=== PATIENT | male | born 1970 | race Caucasian/White ===

== ENCOUNTER 2021-01-29 15:34 | Emergency (ER) | payer OTHER, SELFPAY ==
--- NOTE | ~2021-01-29 | CT_ITS ---
EXAMINATION: CTA chest DATE: 01/29/2021 20:20 CDT INDICATION: Severe upper back and chest pain TECHNIQUE: Computed tomographic angiography (CTA) of the chest was performed with 100 mL Omnipaque-35 0 intravenous contrast. The dose-length product was 349.50 mGy-cm. Maximum intensity projection 3D-re constructions of the aorta and other arteries were constructed by the technologist on a separate work station. Automated exposure control and iterative reconstruction technique were employed. COMPARISON: None. FINDINGS: Heart size is normal. No thoracic lymphadenopathy. No significant pleural or pericardial ef fusion. No endobronchial lesions. There is left lower lobe atelectasis. No focal consolidation. 4 mil limeter left upper lobe nodule, likely benign. 3 mm right upper lobe nodule. There is an additional 2 mm right middle lobe nodule. Thyroid gland is unremarkable. No evidence for aortic aneurysm or disse ction. There are wedge-shaped vertebra at the thoracolumbar junction, likely chronic. No acute osseou s abnormality. IMPRESSION: 1. No acute cardiopulmonary disease. No significant vascular abnormality. 2: Small bilateral pulmonary nodules measuring 4 mm or less, likely benign. Follow-up CT chest in 12 months recommended. Reviewed, dictated and finalized at location A. IMPRESSION: 1. No acute cardiopulmonary disease. No significant vascular abnormality. 2: Small bilateral pulmonary nodules measuring 4 mm or less, likely benign. Fol low-up CT chest in 12 months recommended.
--- NOTE | ~2021-01-29 | XR_ITS ---
EXAMINATION: XR chest 2V 01/29/2021 15:59 INDICATION: Chest pain and cough PROCEDURE: 2 view chest COMPARISON: 01/24/2010 FINDINGS: The lungs are clear. The cardiomediastinal silhouette is within normal limits. There are no pleural effusions. There is no pneumothorax suspected. IMPRESSION: 1: NO ACUTE CARDIOPULMONARY DISEASE. Reviewed, dictated and finalized at location A.
[2021-01-29 15:45] VITALS: BP 135/100; PULSE 97; RESP 17; TEMP 36.4; O2SAT 98
--- NOTE | 2021-01-29 15:48 | ECG_ITS ---
Measurements Intervals [place] Rate: 91 P: 65 [place]: 146 QRS: 62 QRSD: 102 T: 74 QT: 342 QTc: 421 Interpretive Statements SINUS RHYTHM POSSIBLE LEFT ATRIAL ENLARGEMENT INCOMPLETE RIGHT BUNDLE BRANCH BLOCK BORDERLINE ECG Electronically Signed On 01-30-2021 6:41:46 CDT by Jorge Nelson D.O.
[2021-01-29 16:00] LABS: Basophils Percent Auto 0.3 % (0.2-1.2); Eosinophils Absolute Auto 0.7 K/mm3 (0-0.3); Eosinophils Percent Auto 5.5 % (0-4.4); Hematocrit 41.8 % (42.0-52.0); Hemoglobin 14.1 g/dL (14.0-18.0); Immature Granulocyte Absolute 0.03 K/mm3 (0.00-0.031); Immature Granulocyte Percent A 0.2 % (0-0.5); Lymphocytes Absolute Auto 2.98 K/mm3 (0.9-3.2); Lymphocytes Percent Auto 23.2 % (18.3-44.2); Mean Corpuscular HGB Conc 33.7 g/dl (32-36); Mean Corpuscular Hemoglobin 29.4 pg (26-34); Mean Corpuscular Volume 87.3 fl (80-100); Mean Platelet Volume 9.4 fl (7.4-10.4); Monocytes Absolute Auto 0.9 K/mm3 (0.1-0.6); Monocytes Percent Auto 7.2 % (2.6-8.5); Neutrophils Absolute Auto 8.1 K/mm3 (1.3-6.7); Neutrophils Percent Auto 63.6 % (45.5-73.1); Platelet Count Result 276 k/mm3 (150-375); Red Blood Count 4.79 M/mm3 (4.6-6.20); White Blood Count 12.8 K/mm3 (4.5-10.0)
[2021-01-29 16:09] LABS: Anion Gap 10 mmol/L (8-16); Blood Urea Nitrogen 14 mg/dL (9-20); Calcium 9.7 mg/dL (8.4-10.2); Carbon Dioxide 26 mmol/L (22-30); Chloride 104 mmol/L (98-107); Estimated CRCL calculation 78 ml/min; Estimated Glomerular Filt Rate > 60; Glucose 142 mg/dL (75-110); Potassium 4.4 mmol/L (3.4-5.0); Sodium 140 mmol/L (137-145)
[2021-01-29 16:21] LABS: Troponin I < 0.012 ng/mL (0.000-0.034)
[2021-01-29 16:22] LABS: INR 0.9; Prothrombin Time 12.3 Seconds (11.1-14.7)
[2021-01-29 18:40] VITALS: BP 162/99; PULSE 82; RESP 20; O2SAT 98
[2021-01-29 19:18] LABS: Troponin I < 0.012 ng/mL (0.000-0.034)
--- NOTE | 2021-01-29 19:24 | ED.BACK ---
HPI - Back Pain/Injury General Chief Complaint: Chest Pain Stated Complaint: chest pain Time Seen by Provider: 01/29/21 18:52 Source: patient and RN notes reviewed Mode of arrival: ambulatory Limitations: no limitations History of Present Illness HPI Narrative: This is a 50 year old male who presents for evaluation of pain between his shoulder blade. He developed pain 3 days ago . He states his pain has been constant and it feels similar to previous episode of pleurisy. He describes his pain has sharp. It is worse with movement and breathing. He denies cough, fever, nausea, vomiting or shortness of breath. HE states he may have noticed mild pain his chest today . He denies history of PE. He has not taken any medication or tried any treatment for his pain. Related Data Allergies Allergy/AdvReac Type Severity Reaction Status Date / Time No Known Allergies Allergy Verified 01/29/21 18:38 Review of Systems Review of Systems: All systems reviewed & are unremarkable except as noted in HPI and below PMFSH Past Medical History Medical History (Updated 01/30/21 @ 00:00 by Background Daemon) Pleurisy Social History Social History Smoking status: Current every day smoker Gender identity (if verbalized by the patient): Male Exam Const: General: no acute distress and alert Orientation/consciousness: patient oriented x3 Eyes: EOM: EOMs intact bilaterally Chest: Chest palpation & inspection: normal inspection of the chest Resp: Effort & Inspection: normal respiratory effort and no retractions Auscultation: clear to auscultation bilaterally Cardio: Rate: regular rate Rhythm: regular rhythm Heart sounds: no murmurs GI: GI Palp: Yes Soft to palpation, Yes Tenderness to palpation present (GI) (epigastric) and No Guarding due to palpation present (GI) Auscultation: normal bowel sounds Skin: General skin exam: normal color Rashes: no rashes Neuro: General: patient oriented x3, moves all extremities and CN's II-XI intact bilaterally Psych: Mental Status: mental status grossly normal Affect: normal affect Course Reevaluation(s) Reevaluation #1: PAtient states he feels better after toradol and valium. He states he now remembers that he was doing heavy lifting prior to his pain. CT did not shows any aortic etiology . His troponin and d dimer were negative. His pain does sound musculoskeletal. He denies have any neurodeficits. Date: 01/29/21 Time: 20:42 Vital Signs Vital signs: Vital Signs Temperature 97.6 F 01/29/21 15:45 Pulse Rate 97 01/29/21 15:45 Respiratory Rate 17 01/29/21 15:45 Blood Pressure 135/100 H 01/29/21 15:45 Pulse Oximetry 98 01/29/21 15:45 Temperature 97.6 F 01/29/21 15:45 Pulse Rate 100 01/29/21 21:07 Respiratory Rate 19 01/29/21 21:07 Blood Pressure 142/81 H 01/29/21 21:07 Pulse Oximetry 99 01/29/21 21:07 MDM - Back Pain/Injury Lab Data Attestation: I reviewed the patient's lab results. Result diagrams: 01/29/21 15:53 01/29/21 15:53 Labs: Lab Results 01/29/21 01/29/21 01/29/21 Range/Units 15:53 15:53 15:53 WBC 12.8 H (4.5-10.0) K/mm3 RBC 4.79 (4.6-6.20) M/mm3 Hgb 14.1 (14.0-18.0) g/dL Hct 41.8 L (42.0-52.0) % MCV 87.3 (80-100) fl MCH 29.4 (26-34) pg MCHC 33.7 (32-36) g/dl RDW 13.0 (11.5-14.5) % Plt Count 276 (150-375) k/mm3 MPV 9.4 (7.4-10.4) fl Immature Gran % (Auto) 0.2 (0-0.5) % Neut % (Auto) 63.6 (45.5-73.1) % Lymph % (Auto) 23.2 (18.3-44.2) % [place] % (Auto) 7.2 (2.6-8.5) % Eos % (Auto) 5.5 H (0-4.4) % Baso % (Auto) 0.3 (0.2-1.2) % Lymph # (Auto) 2.98 (0.9-3.2) K/mm3 [place] # (Auto) 0.9 H (0.1-0.6) K/mm3 Eos # (Auto) 0.7 H (0-0.3) K/mm3 Baso # (Auto) 0.0 (0.0-0.1) K/mm3 Abs Immat Gran (auto) 0.03 (0.00-0.031) K/mm3 Absolute Neuts (auto) 8.1 H (1.3-6.7) K/mm3 Absolute Nucleated RBC
[2021-01-29 19:43] LABS: D Dimer 0.41 ug/mL (<0.48)
[2021-01-29] MEDS: KETOROLAC 15 MG/ML VIAL (*BKC) IV PUSH (19:43)
[2021-01-29] MEDS: diazePAM (*CRX) 5 MG TABLET PO (19:44)
[2021-01-29 19:47] LABS: Alanine Aminotransferase 24 U/L (4-50); Albumin Level 4.1 g/dL (3.5-5.1); Alkaline Phosphatase 156 U/L (38-126); Aspartate Amino Transferase 21 U/L (17-59); Bilirubin,Total 0.4 mg/dL (0.2-1.3); CRP 1.7 mg/dL (<1.0); Lipase 81 U/L (23-300)
[2021-01-29 19:48] VITALS: BP 170/123; PULSE 94; RESP 26; O2SAT 98
--- NOTE | 2021-01-29 20:07 | PC.NURSE ---
pt in CTA at this time
[2021-01-29 20:17] VITALS: BP 151/107; PULSE 94; RESP 20; O2SAT 100
[2021-01-29 21:07] VITALS: BP 142/81; PULSE 100; RESP 19; O2SAT 99
== END 2021-01-29 21:13 | disposition home or self-care (01) ==
PROVIDERS: Emergency Medicine; Emergency Provider General Practice
DX: M54.6 Pain in thoracic spine (principal); R91.8 Other nonspecific abnormal finding of lung field; F17.200 Nicotine dependence, unspecified, uncomplicated; I45.10 Unspecified right bundle-branch block; R94.31 Abnormal electrocardiogram [ECG] [EKG]
CPT/HCPCS: 36415; 71046; 71275; 80048; 80076; 83690; 84484; 85025; 85380; 85610; 85730; 86140; 93005; 96374; 99284; A9270; J1885; Q9967

== ENCOUNTER 2021-03-16 14:10 | Emergency (ER) | payer OTHER, SELFPAY ==
--- NOTE | ~2021-03-16 | XR_ITS ---
EXAMINATION: XR_[id number]_CR DATE: 03/16/2021 16:29 INDICATION: Neck pain. TECHNIQUE: 3 views of cervical spine were obtained. COMPARISON: None. FINDINGS: There is 13 degrees levoscoliosis of cervicothoracic spine. Vertebral body heights and inte rvertebral disc heights are normal. The facet joints are unremarkable. No central canal stenosis or p revertebral soft tissue swelling. IMPRESSION: 1. Cervicothoracic levoscoliosis. Reviewed, dictated and finalized at location A.
[2021-03-16 14:22] VITALS: BP 157/91; PULSE 97; RESP 18; TEMP 37.3; O2SAT 99
--- NOTE | 2021-03-16 16:12 | ED.NECK ---
HPI - Neck Pain/Injury General Chief Complaint: Neck Pain/Injury Stated Complaint: neck pain Time Seen by Provider: 03/16/21 15:47 Source: patient Mode of arrival: ambulatory Limitations: no limitations History of Present Illness HPI Narrative: This is a 50 year old male that presents to the ER for neck pain x 3 days. Worse with movement and relieved with rest. Reports it feels like a spasm. No known injuries or trauma. Has taken Ibuprofen with little relief. Denies fever, vision changes, vomiting, numbness or weakness. Related Data Allergies Allergy/AdvReac Type Severity Reaction Status Date / Time No Known Allergies Allergy Verified 03/16/21 14:59 Review of Systems Review of Systems: CONSTITUTIONAL: Denies fever EYES: Denies visual changes GASTROINTESTINAL: Denies vomiting SKIN: Denies rash MUSCULOSKELETAL: Reports joint pain, and myalgia. NEUROLOGIC: Denies headache, numbness, or weakness. All systems reviewed & are unremarkable except as noted in HPI and below PMFSH Past Medical History Medical History (Updated 03/16/21 @ 17:59 by Christen Peters PA-C) Pleurisy Social History Social History (Updated 03/16/21 @ 16:14 by Christen Peters PA-C) Smoking status: Current every day smoker Substance use: never Gender identity (if verbalized by the patient): Male Exam Narrative: GENERAL: Well-appearing, well-nourished, and in no acute distress. HEAD: Normocephalic, atraumatic. EYES: PERRLA and EOMI. ENT: Nares clear, no rhinorrhea or epistaxis. Mucous membranes moist. Oropharynx without tonsillar hypertrophy exudate or other lesions. Bilateral TMs pearly lewis non-bulging NECK: Supple. No adenopathy or masses. Trapezius musculature spasm CHEST: Clear to auscultation. No respiratory distress. No wheezes rales or rhonchi HEART: Regular rate and rhythm. No murmur heard. Normal peripheral pulses. EXTREMITIES: Normal range of motion. No edema. Strength equal in bilateral upper extremities (5/5). Normal radial pulses. Normal sensation SKIN: Warm, dry, no rash. NEURO: No focal deficits. Alert and oriented x3. CN II-XII grossly intact PSYCH: Normal mood and affect Course Vital Signs Vital signs: Vital Signs Temperature 99.2 F 03/16/21 14:22 Pulse Rate 97 03/16/21 14:22 Respiratory Rate 18 03/16/21 14:22 Blood Pressure 157/91 H 03/16/21 14:22 Pulse Oximetry 99 03/16/21 14:22 Temperature 99.2 F 03/16/21 14:22 Pulse Rate 97 03/16/21 14:22 Respiratory Rate 18 03/16/21 14:22 Blood Pressure 157/91 H 03/16/21 14:22 Pulse Oximetry 99 03/16/21 14:22 MDM - Neck Pain/Injury MDM Narrative Medical decision making narrative: Patient presents to the emergency department for neck pain present over the last couple of days. No known injuries or trauma. He is neurologically intact. He is afebrile and nontoxic-appearing. Cervical spine x-ray shows cervicothoracic levoscoliosis. Otherwise no acute osseous abnormalities. Patient was updated on case findings. Reports relief with Toradol, Valium and Tylenol. Instructed to rest, use heat to the area and take gjsi-aln-aopymem pain medication as needed. Will be prescribed muscle relaxer as needed for pain. He is to follow-up with primary care doctor. He was given warnings to return to the ER Imaging Data Radiologist's impression: ITS Impressions Cervical Spine X-Ray 03/16/21 16:30 IMPRESSION: 1. Cervicothoracic levoscoliosis. Critical Care Time Critical Care Time Critical Care Time: No Discharge Plan Discharge Clinical Impression: Cervical paraspinal muscle spasm Patient Disposition: Home, Self-Care Condition: Stable Instructions: Neck Pain (ED) Additional Instructions: Return to the emergency department if you experience fever, vision changes, vomiting, numbness, weakness, or any other symptoms that are concerning to you Rest. Remain well-hydrated. Tylenol or ibuprofen as needed for discomfort. Cy
[2021-03-16] MEDS: KETOROLAC (*BKC) 60 MG/2 ML VIAL IM (17:09)
[2021-03-16] MEDS: diazePAM INJ (*CRX) 10 MG/2 ML SYRINGE 5 MG IM (17:09)
[2021-03-16] MEDS: ACETAMINOPHEN 500 MG TABLET 1000 MG PO (17:09)
== END 2021-03-16 18:15 | disposition home or self-care (01) ==
PROVIDERS: Emergency Provider Emergency Medicine
DX: M62.838 Other muscle spasm (principal); F17.200 Nicotine dependence, unspecified, uncomplicated
CPT/HCPCS: 72040; 96372; 99284; A9270; J1885; J3360

== ENCOUNTER 2021-03-24 07:39 | Emergency (ER) | payer OTHER, SELFPAY ==
--- NOTE | ~2021-03-24 | CT_ITS ---
EXAMINATION: CT cervical spine wo [facility] EXAM DATE: 03/24/2021 08:13 INDICATION: Neck pain , symptoms 10 days. TECHNIQUE: Spiral CT of the cervical spine was performed without contrast. Axial images were reviewe d. Coronal and sagittal reformatted images cervical spine were also reviewed. The dose-length produc t (DLP) for this examination was 486.11 mGy-cm. The exposure was tailored according to patient size (auto mA exposure control), and iterative reconstruction (ASIR) was used as additional dose reduction technique. There is no prior study for comparison. FINDINGS: There is mild mid cervical disc disease. The vertebral body heights are maintained. The ve rtebral bodies are aligned in the AP dimension. The odontoid process is intact. The lateral masses o f C1 line up with C2. Prevertebral soft tissue and pre-dens space are within normal limits. There are no acute fractures identified. There are no osteoblastic or osteolytic lesions identified. Level by level evaluation: C2-C3: Disc does not extend beyond the endplate margin. Uncovertebral joint arthropathy: None. Facet joint arthropathy: Mild bilateral. Neural foraminal stenosis: No stenosis. Central canal stenosis: No stenosis. C3-C4: There is a mild diffuse disc bulge. Uncovertebral joint arthropathy: Mild bilateral. Facet joint arthropathy: Moderate left, mild right. Neural foraminal stenosis: Mild bilateral. Central canal stenosis: Mild. C4-C5: There is a mild diffuse disc bulge. Uncovertebral joint arthropathy: Mild to moderate left, mild right. Facet joint arthropathy: Mild bilateral. Neural foraminal stenosis: Mild left. Central canal stenosis: Mild. C5-C6: There is a minimal diffuse disc bulge. Uncovertebral joint arthropathy: Mild left. Facet joint arthropathy: Mild bilateral. Neural foraminal stenosis: No stenosis. Central canal stenosis: No stenosis. C6-C7: There is a minimal diffuse disc bulge. Uncovertebral joint arthropathy: Mild bilateral. Facet joint arthropathy: Mild bilateral. Neural foraminal stenosis: Mild right. Central canal stenosis: No stenosis. C7-T1: Disc does not extend beyond the endplate margin. Uncovertebral joint arthropathy: None. Facet joint arthropathy: None. Neural foraminal stenosis: No stenosis. Central canal stenosis: No stenosis. IMPRESSION: Mild cervical spondylosis. No acute findings. Reviewed, dictated and finalized at location D.
[2021-03-24 07:43] VITALS: BP 152/98; PULSE 95; RESP 18; TEMP 36.4; O2SAT 97
--- NOTE | 2021-03-24 08:03 | ED.NECK ---
HPI - Neck Pain/Injury General Chief Complaint: Neck Pain/Injury Stated Complaint: NECK PAIN Time Seen by Provider: 03/24/21 08:02 Source: patient Mode of arrival: ambulatory Limitations: no limitations History of Present Illness HPI Narrative: Patient is a 50-year-old male complaining of neck pain, 910, dull, nonradiating started approximately 10 days ago. Patient states that he was seen here last week on 03/16, had an x-ray of his neck done, was told he had a strain and was placed on a muscle relaxer. Patient states that he felt better but the pain recurred. Patient states that he was doing yard work yesterday and could have aggravated the pain. Patient denies any weakness, numbness or incontinence. Patient denies any headache, fever or chills. Related Data Allergies Allergy/AdvReac Type Severity Reaction Status Date / Time No Known Allergies Allergy Verified 03/16/21 14:59 Review of Systems Review of Systems: All systems reviewed & are unremarkable except as noted in HPI and below Constitutional: Constitutional: Denies body ache(s), Denies chills, Denies excessive sweating, Denies fatigue, Denies fever(s), Denies headache(s), Denies lethargy, Denies malaise, Denies weakness and Denies weight loss Eyes: Eyes: Denies blurry vision, Denies change in vision and Denies loss of vision ENT: Denies dizziness, Denies ear discharge, Denies headache(s), Denies lip swelling, Denies epistaxis, Denies nasal congestion, Denies neck pain, Denies throat swelling and Denies tongue swelling Cardiovascular: Cardiovascular: Denies chest pain, Denies chest pain at rest, Denies chest pain with activity, Denies diaphoresis, Denies rapid heart rate, Denies edema, Denies irregular heart rhythm, Denies lightheadedness, Denies palpitations, Denies dyspnea and Denies dyspnea on exertion Respiratory: Respiratory: Denies chest congestion, Denies cough, Denies hemoptysis, Denies dyspnea and Denies dyspnea on exertion Gastrointestinal: Gastrointestinal: Denies abdominal pain, Denies melena, Denies hematochezia, Denies diarrhea, Denies nausea, Denies vomiting and Denies hematemesis Musculoskeletal: Musculoskeletal: Denies abnormal gait, Denies deformity, Denies joint swelling, Denies limited range of motion, Denies neck pain and Denies numbness Neurologic: Denies Abnormal speech present, Denies abnormal gait, Denies confusion, Denies dizziness, Denies headache(s), Denies focal weakness, Denies loss of vision, Denies numbness, Denies Other visual disturbances, Denies Sensory deficit (Neuro) and Denies weakness Psychiatric: Psychiatric: Denies confusion, Denies depression, Denies auditory hallucinations, Denies homicidal ideation and Denies suicidal ideation Endocrine: Endocrine: Denies cold intolerance, Denies excessive sweating, Denies fatigue, Denies heat intolerance and Denies palpitations Hematologic/Lymphatic: Hematologic/Lymphatic: Denies easy bleeding and Denies easy bruising Allergic/Immunologic: Allergic/Immunologic: Denies lip swelling, Denies throat swelling and Denies tongue swelling PMF Past Medical History Medical History (Updated 03/24/21 @ 08:43 by Adi Gonzalez MD) Pleurisy Social History Social History (Updated 03/16/21 @ 16:14 by TRAVIS KeaneC) Smoking status: Current every day smoker Substance use: never Gender identity (if verbalized by the patient): Male Comments Past medical history: None Family history: Negative for aneurysm negative for dissection Social history: Positive for smoker, no EtOH or drug use Exam Const: General: cooperative, healthy appearing, comfortable, no acute distress, well developed, alert and awake; No confusion Orientation/consciousness: oriented to person, oriented to place, oriented to time, patient oriented x3 and No confusion Limitations: no limitations HENMT: Head: normal to inspection, normocephalic and atraumatic Ears: hearing grossly normal bilaterally, TM normal on the
[2021-03-24] MEDS: KETOROLAC 30 MG/ML VIAL (*BKC) IM (08:52)
== END 2021-03-24 08:53 | disposition home or self-care (01) ==
PROVIDERS: Emergency Provider Emergency Medicine
DX: S16.1XXA Strain of muscle, fascia and tendon at neck level, initial encounter (principal); F17.200 Nicotine dependence, unspecified, uncomplicated; X58.XXXA Exposure to other specified factors, initial encounter
CPT/HCPCS: 72125; 96372; 99284; J1885

== ENCOUNTER 2023-08-07 17:17 | Emergency (ER) | payer OTHER, SELFPAY ==
--- NOTE | ~2023-08-07 | XR_ITS ---
EXAMINATION: XR chest 2V DATE: 08/07/2023 17:48 INDICATION: Chest pain. TECHNIQUE: Frontal and lateral views of the chest were obtained. COMPARISON: Chest 2 views 01/29/2021 FINDINGS: There is no pneumonia, pleural effusion, or pneumothorax. The heart size is normal. There i s an old healed left rib fracture. There is mild chronic anterior wedging of multiple vertebral taz s. IMPRESSION: 1. No acute cardiopulmonary disease. Reviewed, dictated and finalized at location E. MACHINE FEEDER
--- NOTE | 2023-08-07 17:17 | ECG_ITS ---
Measurements Intervals [place] Rate: 86 P: 62 MT: 149 QRS: 55 QRSD: 101 T: 70 QT: 342 QTc: 411 Interpretive Statements SINUS RHYTHM NORMAL ECG COMPARED TO ECG 01/29/2021 18:44:47 NO SIGNIFICANT CHANGES Electronically Signed On 08-07-2023 19:02:49 DRYWALL APPLICATOR by Jorge Nelson D.O.
[2023-08-07 17:32] VITALS: BP 123/57; PULSE 86; RESP 20; TEMP 36.4; O2SAT 100
[2023-08-07 17:38] LABS: Basophils Absolute Auto 0.1 K/mm3 (0.0-0.1); Basophils Percent Auto 0.4 % (0.2-1.2); Hematocrit 34.9 % (42.0-52.0); Hemoglobin 11.7 g/dL (14.0-18.0); Immature Granulocyte Absolute 0.04 K/mm3 (0.00-0.031); Immature Granulocyte Percent A 0.3 % (0-0.5); Lymphocytes Absolute Auto 3.63 K/mm3 (0.9-3.2); Lymphocytes Percent Auto 28.2 % (18.3-44.2); Mean Corpuscular HGB Conc 33.5 g/dl (32-36); Mean Corpuscular Hemoglobin 30.1 pg (26-34); Mean Corpuscular Volume 89.7 fl (80-100); Mean Platelet Volume 9.3 fl (7.4-10.4); Monocytes Absolute Auto 0.6 K/mm3 (0.1-0.6); Monocytes Percent Auto 4.8 % (2.6-8.5); Neutrophils Absolute Auto 7.5 K/mm3 (1.3-6.7); Neutrophils Percent Auto 58.3 % (45.5-73.1); Platelet Count Result 338 k/mm3 (150-375); Red Blood Count 3.89 M/mm3 (4.6-6.20); Red Cell Distribution Width 12.8 % (11.5-14.5); White Blood Count 12.9 K/mm3 (4.5-10.0)
[2023-08-07 17:50] LABS: Alanine Aminotransferase 17 U/L (6-50); Albumin Level 4.1 g/dL (3.5-5.1); Alkaline Phosphatase 142 U/L (38-126); Anion Gap 11 mmol/L (8-16); Aspartate Amino Transferase 18 U/L (17-59); Bilirubin,Total 0.7 mg/dL (0.2-1.3); Blood Urea Nitrogen 45 mg/dL (9-20); Calcium 8.9 mg/dL (8.4-10.2); Carbon Dioxide 21 mmol/L (22-30); Chloride 105 mmol/L (98-107); Estimated CRCL calculation 47 ml/min; Estimated Glomerular Filt Rate 40; Glucose 102 mg/dL (65-110); Lipase 52 U/L (23-300); Potassium 3.9 mmol/L (3.4-5.0); Sodium 137 mmol/L (137-145)
[2023-08-07 17:51] LABS: Prothrombin Time 13.9 Seconds (11.1-14.7)
[2023-08-07 17:52] LABS: Partial Thromboplastin Time 27.4 SECONDS (22.3-36.8)
[2023-08-07 17:59] LABS: Troponin I < 0.012 ng/mL (0.000-0.034)
[2023-08-07 20:20] VITALS: BP 114/56; PULSE 78; RESP 15; O2SAT 98
[2023-08-07 20:47] LABS: Troponin I < 0.012 ng/mL (0.000-0.034)
--- NOTE | 2023-08-07 21:35 | ED.CHESTPAIN ---
HPI - Chest Pain General Chief Complaint: Chest Pain Stated Complaint: chest pain Time Seen by Provider: 08/07/23 20:19 History of Present Illness HPI narrative: Patient is a 53-year-old male presenting with chest pain. Patient states that earlier this week he had several days of right-sided chest pain. This resolved and then this morning he woke up with left-sided chest pain. States that it is worse with inspiration and certain movements. Specifically, whenever he stretches his arms over his head the pain is worse. States that he also notices it gets worse when he goes out in the cold for a while. No shortness of breath, lightheadedness, diaphoresis, nausea vomiting, leg swelling. No recent travel or surgeries. No further complaints. Related Data Allergies Allergy/AdvReac Type Severity Reaction Status Date / Time No Known Allergies Allergy Verified 03/16/21 14:59 Review of Systems Review of Systems: All systems reviewed & are unremarkable except as noted in HPI and below PMFSH Past Medical History Medical History Pleurisy Social History Social History Smoking status: Current every day smoker Substance use: never Gender identity (if verbalized by the patient): Male Exam Narrative: GENERAL: Well-appearing, In no acute distress, pleasant cooperative HEAD: Normocephalic, atraumatic. EYES: PERRLA and EOMI. ENT: grossly unremarkable NECK: Supple. CHEST: Clear to auscultation. No respiratory distress. HEART: Regular rate and rhythm ABDOMEN: Soft, nontender, nondistended EXTREMITIES: Normal range of motion. No edema. SKIN: Warm, dry, no rash. NEURO: Alert and oriented x3. PSYCH: Normal mood and affect. Course Vital Signs Vital signs: Vital Signs Temperature 97.5 F L 08/07/23 17:32 Pulse Rate 86 08/07/23 17:32 Respiratory Rate 20 08/07/23 17:32 Blood Pressure 123/57 L 08/07/23 17:32 Pulse Oximetry 100 08/07/23 17:32 Oxygen Delivery Room Air 08/07/23 17:32 Temperature 97.5 F L 08/07/23 17:32 Pulse Rate 80 08/07/23 22:08 Respiratory Rate 16 08/07/23 22:08 Blood Pressure 110/58 L 08/07/23 22:08 Pulse Oximetry 98 08/07/23 22:08 Oxygen Delivery Room Air 08/07/23 17:32 MDM - Chest Pain MDM Narrative Medical decision making narrative: patient is a 53-year-old male presenting with chest pain. Vitals are stable. Exam remarkable for the above. EKG per my interpretation shows normal sinus rhythm, normal axis and intervals, no ST elevations or depressions. Unchanged from prior. Troponins are undetectable x2. Chest x-ray without acute abnormalities. He is low risk per Wells criteria for PE. He is not tachycardic, not hypoxic. His pain is worsened with positional changes and stretching. Suspect pleuritis or musculoskeletal pain. Feel he is safe for outpatient management. Strict return precautions given. Discharged in stable condition. Differential Diagnosis Differential diagnosis: Likely atypical chest pain, costochondritis and chest pain Medical Records Data Attestation: I reviewed the patient's medical records. Lab Data Attestation: I reviewed the patient's lab results. 08/07/23 17:30 08/07/23 17:30 Labs: Lab Results 08/07/23 08/07/23 Range/Units 17:30 20:22 WBC 12.9 H (4.5-10.0) K/mm3 RBC 3.89 L (4.6-6.20) M/mm3 Hgb 11.7 L (14.0-18.0) g/dL Hct 34.9 L (42.0-52.0) % MCV 89.7 (80-100) fl MCH 30.1 (26-34) pg MCHC 33.5 (32-36) g/dl RDW 12.8 (11.5-14.5) % Plt Count 338 (150-375) k/mm3 MPV 9.3 (7.4-10.4) fl Immature Gran % (Auto) 0.3 (0-0.5) % Neut % (Auto) 58.3 (45.5-73.1) % Lymph % (Auto) 28.2 (18.3-44.2) % [place] % (Auto) 4.8 (2.6-8.5) % Eos % (Auto) 8.0 H (0-4.4) % Baso % (Auto) 0.4 (0.2-1.2) % Lymph # (Auto) 3.63 H (0.9-3.
[2023-08-07 22:08] VITALS: BP 110/58; PULSE 80; RESP 16; O2SAT 98
== END 2023-08-07 22:10 | disposition home or self-care (01) ==
PROVIDERS: Emergency Provider Emergency Medicine
DX: R07.89 Other chest pain (principal); F17.210 Nicotine dependence, cigarettes, uncomplicated
CPT/HCPCS: 36415; 71046; 80053; 83690; 84484; 85025; 85610; 85730; 93005; 99284